=== PATIENT | female | born 1955 | race Caucasian/White ===

== ENCOUNTER 2018-02-23 10:33 | Emergency (ER) | payer OTHER ==
[2018-02-23 10:37] VITALS: TEMP 98.1; BMI 39.3
[2018-02-23] MEDS ORDERED: SODIUM CHLORIDE 0.9% 500 ML INFUS.BAG IV ONE (10:47)
[2018-02-23] MEDS ORDERED: PANTOPRAZOLE SODIUM 40 MG VIAL IVPUSH ONE (10:47)
[2018-02-23] MEDS ORDERED: ONDANSETRON 4 MG/2 ML VIAL IVPUSH ONE (10:47)
--- NOTE | 2018-02-23 10:48 | PDOC ---
History of Present Illness - General Chief Complaint: Pain Stated Complaint: ABD PAIN, VOMITING - History of Present Illness Initial Comments: Pt is a 62F w/ a history of hypothyroidism who presents for 3d of epigastric/ RUQ abdominal pain that intermittently radiates around her R flank and R & L back. The patient reports that the pain is achy/cramping, intermittent, and she feels as though she cannot find a comfortable position. She endorses associated NBNB vomiting. Denies fevers/chills, INGRAM, visions changes, chest pain, SOB, diarrhea, dysuria, hematuria, or blood in her stool. PSH: R ovarian cyst removal 02/23/18 10:49 Past History - Past Medical History Allergies/Adverse Reactions: Allergies Allergy/AdvReac Type Severity Reaction Status Date / Time No Known Allergies Allergy Verified 02/23/18 10:34 Home Medications: Ambulatory Orders Famotidine [Pepcid -] 20 mg PO DAILY #30 tablet 02/23/18 Levothyroxine [Synthroid -] 100 mcg PO DAILY 02/23/18 Ondansetron [Ondansetron Odt] 8 mg PO QID PRN 5 Days #20 tab.rapdis 02/23/18 COPD: No Thyroid Disease: Yes - Suicide/Smoking/Psychosocial Hx Smoking History: Former smoker Have you smoked in the past 12 months: Yes Information on smoking cessation initiated: Yes Hx Alcohol Use: No Review of Systems - Review of Systems Able to Perform ROS?: Yes Comments:: GENERAL/CONSTITUTIONAL: No fever or chills. No weakness HEAD, EYES, EARS, NOSE AND THROAT: No change in vision. No ear pain or discharge. No sore throat CARDIOVASCULAR: No chest pain or shortness of breath RESPIRATORY: Denies cough, hemoptysis GASTROINTESTINAL: per HPI GENITOURINARY: No dysuria, frequency, or change in urination MUSCULOSKELETAL: No joint or muscle swelling or pain. No neck or back pain SKIN: No rash NEUROLOGIC: No headache, vertigo, loss of consciousness, or change in strength/ sensation ENDOCRINE: No increased thirst. No abnormal weight change HEMATOLOGIC/LYMPHATIC: No anemia, easy bleeding, or history of blood clots ALLERGIC/IMMUNOLOGIC: No hives or skin allergy 02/23/18 10:44 Is the patient limited [place] proficient: No *Physical Exam - Vital Signs Last Vital Signs Temp Pulse Resp BP Pulse Ox 98.1 F 111 H 20 140/75 97 02/23/18 10:33 02/23/18 10:33 02/23/18 10:33 02/23/18 10:33 02/23/18 10:33 - Physical Exam Comments: GENERAL: Awake, alert, and fully oriented, in no acute distress HEAD: No signs of trauma, normocephalic, atraumatic EYES: PERRLA, EOMI, sclera anicteric, conjunctiva clear ENT: Hearing grossly normal, nares patent, oropharynx clear without exudates. Moist mucosa LUNGS: No distress, speaks full sentences, clear to auscultation bilaterally HEART: Regular rate and rhythm, normal S1 and S2, no murmurs appreciated, peripheral pulses normal and equal bilaterally ABDOMEN: Soft, epigastric TTP w/o rebound or guarding, normoactive bowel sounds EXTREMITIES : Normal inspection, Normal range of motion, no edema. No clubbing or cyanosis NEUROLOGICAL: Cranial nerves II through XII grossly intact. Normal speech, normal gait, no focal sensorimotor deficits SKIN: Warm, Dry, normal turgor, no rashes or lesions noted 02/23/18 10:45 Moderate Sedation - Procedure Monitoring Vital Signs: Procedure Monitoring Vital Signs Temperature 98.1 F 02/23/18 10:33 Pulse Rate 111 H 02/23/18 10:33 Respiratory Rate 20 02/23/18 10:33 Blood Pressure 140/75 02/23/18 10:33 O2 Sat by Pulse Oximetry (%) 97 02/23/18 10:33 ED Treatment Course - LABORATORY CBC & Chemistry Diagram: 02/23/18 10:54 02/23/18 10:54 Medical Decision Making - Medical Decision Making The patient is a 62F w/ a history of hypothyroidism who presents for evaluation of 3d of epigastric/RUQ abdominal pain w/ associated N/V Ddx: cholelithiasis, nephrolithiasis, pancreatitis; considered PUD, AAA, and AD ED Course CMP, CBC, UA 02/23/18 10:45 UA w/ 2+blood, No LE or nitrite -UTI not likely -Will obtain CT spiral to evaluate for nephrolithiasis 02/23/18 11:21 CT w/ gallstones and w/o nephrolithiasis -Will obtain RUQ US 02/23/18 13:27 US w/o evidence of cholecystitis -Will give GI f/u 02/23/18 14:24 Patient symptoms improved s/p Zofran and Pepcid Patient's symptoms likely 2/2 gastritis -Will give Rx for Pepcid and Zofran Plan for D/C w/ PCP and GI f/u Discharge instructions and return precautions given Plan discussed with patient who is in agreement and verbalized understanding Dispo: home 02/23/18 15:03 *DC/Admit/Observation/Transfer Diagnosis at time of Disposition: Gastroenteritis Cholelithiases Qualifiers: Cholelithiasis location: gallbladder Cholecystitis presence: without cholecystitis Biliary obstruction: without biliary obstruction Qualified Code(s) : K80.20 - Calculus of gallbladder without cholecystitis without obstruction - Discharge Dispostion Disposition: HOME Condition at time of disposition: Stable Decision to Admit order: No - Prescriptions Prescriptions: Famotidine [Pepcid -] 20 mg PO DAILY #30 tablet Ondansetron [Ondansetron Odt] 8 mg PO QID PRN 5 Days #20 tab.rapdis PRN Reason: Nausea And/Or Vomiting - Referrals Referrals: [facility] [place] [Provider Group] Jesu Anthony DO [Staff Physician] - - Patient Instructions Printed Discharge Instructions: DI for Gastritis Additional Instructions: You were seen in the Emergency Department for evaluation of abdominal pain. You were found to have gallstones without evidence of inflammation of the gallbladder. You likely have gastritis. Please review the handout provided at discharge. Be sure to follow up with your primary care provider and the referral provided. Return to the Emergency Department if you develop fevers/chills, worsening symptoms, inability to tolerate fluids, or any new/concerning symptoms. - Post Discharge Activity
--- NOTE | 2018-02-23 10:49 | PDOC ---
Attending Attestation - Resident Resident Name: Marciano Dc - ED Attending Attestation I have performed the following: I have examined & evaluated the patient, The case was reviewed & discussed with the resident, I agree w/resident's findings & plan, Exceptions are as noted - HPI HPI: 02/23/18 14:57 Patient with epigastric pain, nausea, vomiting beginning . Symptoms have lessened but are still present. No diarrhea with normal bowel movement this morning. No hematemesis melena or bloody stool. No lightheadedness or dizziness, chest pain, or shortness of breath. No known GI disease. - Physicial Exam PE: 02/23/18 14:58 Physical exam: Moderately obese female in no acute distress cheerful and cooperative Afebrile, vital signs normal No pallor or icterus. HEENT clear Neck supple without bruit mass or nodes Lungs clear, full breath sounds bilaterally CV regular without murmur rub or gallop. No tachycardia Abdomen nondistended. Bowel sounds normal. Soft without mass tenderness organomegaly. Reynaga sign is negative. No CVAT Extremities no CCE Skin clear, no rash, adequate turgor and wet mucous membranes Neurological intact - Medical Decision Making 02/23/18 14:59 Assessment: Vague and mild abdominal symptoms suggest viral gastroenteritis. Other possibilities biliary colic, renal colic, gastritis, pancreatitis. These however, less likely Plan: Laboratories show a normal white count, minimally elevated LFTs, normal lipase. Urinalysis shows 2+ blood. In view of the blood and the description of pain which was initially severe and caused her to double over, along with abrasions to the back, rule out renal calculi. CT is negative in this respect. However, gallstones or visualized, but with no sign of cholecystitis. Because of the elevated LFTs, and ultrasound was performed, but the bile duct was not at all dilated. Findings are consistent with viral gastroenteritis, to be treated accordingly and with close follow-up if symptoms do not resolve or worsen. Fully ambulatory and in no pain or other distress upon discharge to follow-up as directed. Maintained on H2 katie and Zofran as needed.
[2018-02-23] MEDS ORDERED: PANTOPRAZOLE SODIUM 40 MG VIAL ONE (11:01)
[2018-02-23] MEDS ORDERED: ONDANSETRON 4 MG/2 ML VIAL ONE (11:01)
[2018-02-23 11:08] LABS: PH,URINE 5.5 (4.5-8); URINE APPEARANCE Clear; URINE BILIRUBIN 1+ (NEGATIVE); URINE COLOR Yellow; URINE GLUCOSE (UA) Negative (NEGATIVE); URINE KETONE 3+ (NEGATIVE); URINE LEUK ESTERASE Negative (NEGATIVE); URINE NITRITE Negative (NEGATIVE); URINE PROTEIN 2+ (NEGATIVE)
[2018-02-23 11:28] LABS: ALBUMIN 3.5 g/dl (3.5-5.0); ALK PHOS 146 U/L (32-92); ANION GAP 10 MMOL/L (8-16); BILIRUBIN,TOTAL 1.1 mg/dl (0.2-1.0); BLOOD UREA NITROGEN 20 mg/dl (7-18); CALCIUM 8.6 mg/dl (8.4-10.2); CHLORIDE 103 mmol/L (98-107); CO2 22 mmol/L (22-28); CREATININE 0.7 mg/dl (0.6-1.3); GLUCOSE,RANDOM 101 mg/dl (74-106); HEMOGLOBIN 13.4 GM/dl (10.7-15.3); MCH 31.2 pg (25.7-33.7); MCHC 32.8 g/dl (32.0-36.0); MEAN CELL VOLUME 95.2 fl (80-96); MEAN PLT VOLUME 9.5 fl (7.5-11.1); PLATELET COUNT 190 K/MM3 (134-434); POTASSIUM 3.7 mmol/L (3.5-5.1); RDW 12.4 % (11.6-15.6); SGOT/AST 39 U/L (10-42); SGPT/ALT 164 U/L (10-40); SODIUM 135 mmol/L (136-145); TOT PROT 6.6 g/dl (6.4-8.3); WHITE BLOOD COUNT 10.8 K/mm3 (4.0-10.8)
[2018-02-23 11:55] LABS: AMORP URATES 1+ /hpf (NONE SEEN); EPI CELLS 1+ /HPF; URINE BACTERIA 1+ /hpf (NEGATIVE); URINE WBC 0-2 (0-5)
[2018-02-23 12:07] VITALS: BP 131/68; PULSE 80
== END 2018-02-23 15:00 | disposition home or self-care (01) ==
LOC: FER 10:33
PROC: 3E0337Z Introduction of Electrolytic and Water Balance Substance into Peripheral Vein, Percutaneous Approach (ICD-10-PCS; principal; 2018-02-23)
PROC: 3E033GC Introduction of Other Therapeutic Substance into Peripheral Vein, Percutaneous Approach (ICD-10-PCS; 2018-02-23)
DX: K80.20 Calculus of gallbladder without cholecystitis without obstruction (principal); K52.9 Noninfective gastroenteritis and colitis, unspecified; E03.9 Hypothyroidism, unspecified; Z87.891 Personal history of nicotine dependence
CPT/HCPCS: 36415; 74176; 76705-TC; 80053; 81003; 81015; 83690; 85027; 99285-25